=== PATIENT | female | born 1950 | race Caucasian/White ===

== ENCOUNTER 2020-11-27 01:48 | Outpatient (CLI) | payer MEDICARE, BC, SELFPAY ==
--- NOTE | 2020-11-27 08:00 | DI.RAD_ITS ---
EXAM: XR THUMB RT CLINICAL HISTORY: Pain, clicking right thumb,M79.646. TECHNIQUE: 2D digital imaging was performed. COMPARISON: No exams were available for comparison FINDINGS: There is no evidence of fracture lines. No dislocation. On the lateral view there is a tiny submill imeter calcific density just volar to the base of the distal phalanx, possibly significant. There is no radiographic evidence of osteomyelitis. Sign rib IMPRESSION: DATA REPOSITORY: RADIATION DOSE DELIVERED:
== END 2020-11-27 02:08 ==
PROVIDERS: PCP Student in an Organized Health Care Education/Training Program; Visit Provider Student in an Organized Health Care Education/Training Program
DX: M79.644 Pain in right finger(s) (principal); M24.841 Other specific joint derangements of right hand, not elsewhere classified
CPT/HCPCS: 73140

== ENCOUNTER 2021-01-09 03:27 | Outpatient (CLI) | payer MEDICARE, BC, SELFPAY ==
[2021-01-09 08:20] LABS: HCT 38.6 % (36.0-46.0); HGB 12.8 g/dL (11.2-15.7); MCH 30.3 pg (27.0-33.0); MCHC 33.2 % (32.0-36.0); MCV 91.3 fL (80-95); MPV 9.8 fL (8.0-11.0); Platelet Count 224 10^3/uL (130-400); RBC 4.23 10^6/uL (3.93-5.22); RDW 12.5 % (11.7-14.6); RDW-SD 41.8 fL; WBC 6.41 10^3/uL (4.4-10.8)
[2021-01-09 09:05] LABS: Iron 102 ug/dL (50-170)
[2021-01-09 09:16] LABS: ALT 23 U/L (14-59); AST 21 U/L (15-37); Albumin 3.6 g/dL (3.4-5.0); Alkaline Phosphatase 78 U/L (46-116); Anion Gap 7.2 mmol/L (3-11); BUN 17 mg/dL (7-18); Bilirubin, Total 0.7 mg/dL (0.2-1.0); CO2 27.8 mmol/L (21.0-32.0); CREATININE 0.7 mg/dL (0.55-1.02); Calcium 8.9 mg/dL (8.5-10.1); Chloride 107 mmol/L (98-107); Glucose 86 mg/dL (74-106); Potassium 4.3 mmol/L (3.5-5.1); Sodium 142 mmol/L (136-145); TSH (W/Ref FT4) 1.54 uIU/mL (0.36-3.74); Total Protein 6.5 g/dL (6.4-8.2)
[2021-01-09 12:21] LABS: Calculated LDL 112 mg/dL (<100); Cholesterol 181 mg/dL (<200); Ferritin 151 ng/mL (8-252); HDL Cholesterol 55 mg/dL (40-60); Triglyceride 73 mg/dL (<150)
[2021-01-13 19:33] LABS: Vitamin D 25 Total 75.3 ng/mL (30-100)
== END 2021-01-09 03:28 | disposition home or self-care (01) ==
LOC: LBO 03:27
PROVIDERS: PCP Student in an Organized Health Care Education/Training Program; Visit Provider Student in an Organized Health Care Education/Training Program
DX: D64.9 Anemia, unspecified (principal); E78.2 Mixed hyperlipidemia; M81.0 Age-related osteoporosis without current pathological fracture; E46 Unspecified protein-calorie malnutrition
CPT/HCPCS: 36415; 80053; 80061; 82306; 85027; 82728; 83540; 84443

== ENCOUNTER 2021-04-28 00:49 | Outpatient (CLI) | payer MEDICARE, BC, SELFPAY ==
--- NOTE | 2021-04-28 08:30 | DI.RAD_ITS ---
Exam(s) XR LUMBAR SPINE COMPLETE EXAM: XR LUMBAR SPINE COMPLETE CLINICAL HISTORY: eval progressive degenerative disease, back pain, M54.9. TECHNIQUE: 2D digital imaging was performed. COMPARISON: No exams were available for comparison FINDINGS: There is no evidence of fracture or listhesis nor pars defects. There is multilevel disc space narro wing. Most prominent disc space narrowing is noted on the left side at L3-4 level and this is the ce nter of a mild degenerative scoliosis convex right. Disc space height on the right side at this leve l is normal. No osseous lesions. Sacroiliac joints appear unremarkable. Mild facet arthropathy. IMPRESSION: Degenerative disc disease. Degenerative scoliosis. DATA REPOSITORY: RADIATION DOSE DELIVERED:
== END 2021-04-28 01:09 ==
PROVIDERS: PCP Student in an Organized Health Care Education/Training Program; Visit Provider Student in an Organized Health Care Education/Training Program
DX: M54.9 Dorsalgia, unspecified (principal); M51.36 Other intervertebral disc degeneration, lumbar region; M41.86 Other forms of scoliosis, lumbar region
CPT/HCPCS: 72110

== ENCOUNTER 2021-06-03 04:03 | Outpatient (CLI) | payer MEDICARE, BC, SELFPAY ==
[2021-06-04 11:05] LABS: Lyme Ab w Rflx to Lyme Confirm Negative (Negative)
[2021-06-05 19:17] LABS: Anaplasma phagocytophilum Negative (Negative); B. miyamotoi PCR Negative (Negative); Babesia divergens/MO-1 Negative (Negative); Babesia duncani Negative (Negative); Babesia microti Negative (Negative); Ehrlichia chaffeensis Negative (Negative); Ehrlichia ewingii/canis Negative (Negative); Ehrlichia muris eauclairensis Negative (Negative)
== END 2021-06-03 04:04 | disposition home or self-care (01) ==
LOC: LBO 04:04
PROVIDERS: PCP Student in an Organized Health Care Education/Training Program; Visit Provider Student in an Organized Health Care Education/Training Program
DX: M25.59 Pain in other specified joint; W57.XXXA Bitten or stung by nonvenomous insect and other nonvenomous arthropods, initial encounter
CPT/HCPCS: 36415; 87798; 86618

== ENCOUNTER 2021-08-24 04:43 | Emergency (ER) | payer MEDICARE, BC, SELFPAY ==
[2021-08-24 04:50] VITALS: BP 123/78; PULSE 70; RESP 18; TEMP 36.7; O2SAT 97
--- NOTE | 2021-08-24 05:00 | DI.RAD_ITS ---
Exam(s) XR PORTABLE CHEST AP EXAM: XR PORTABLE CHEST AP CLINICAL HISTORY: covid + Cough, SOB TECHNIQUE: 2D digital imaging was performed. COMPARISON: No exams were available for comparison FINDINGS: LUNGS: Clear. No pleural abnormality seen. HEART: Normal. MEDIASTINUM: Normal. BONES: Unremarkable. IMPRESSION: No acute pulmonary findings. DATA REPOSITORY: RADIATION DOSE DELIVERED:
--- NOTE | 2021-08-24 05:00 | RT.EKG_ITS ---
APPROVED REPORT Exam: Resting ECG Reason for Exam: chest pain Patient Location: E HR:64 bpm ECG Measurements Heart Rate 64 AXIS OR 152 P 63 QRSd 98 QRS 25 QT 433 T 38 QTc 448 Conclusion Sinus rhythm...normal P axis, V-rate 60- 99 Physician: no stemi
[2021-08-24] MEDS: Normal Saline 500 ML 30 ML IV (05:10)
--- NOTE | 2021-08-24 05:11 | W.ED.GENAD ---
Discharge Plan Disposition Patient Disposition: HOME Condition: Good Discharge Details Clinical Impression: COVID-19, Acute hypokalemia Primary Care Provider: Cheyenne Lucas ED Provider: Lorne Flores Home Meds and New Rx's Prescriptions: Continued resveratrol-quercetin 100-100 mg tablet See Rx Instructions PO .QD RF: 0 Adult Probiotic 3 billion cell capsule 3,000 mmu cells PO DAILY RF: 0 magnesium 250 mg tablet 250 mg PO DAILY RF: 0 omega-3 fatty acids 500 mg capsule 500 mg PO DAILY RF: 0 ascorbate calcium (vitamin C) 500 mg tablet 500 mg PO DAILY RF: 0 zinc acetate 25 mg (zinc) capsule 25 mg PO DAILY RF: 0 vitamin A 10,000 unit capsule 10,000 unit PO DAILY RF: 0 vitamin B complex Capsule 1 cap PO DAILY RF: 0 cholecalciferol (vitamin D3) 125 mcg (5,000 unit) capsule 125 mcg PO DAILY RF: 0 No Action melatonin 10 mg Tablet 10 mg PO HS RF: 0 Discharge Instructions Instructions: COVID-19 (Coronavirus Disease 2019) (ED) Additional Instructions: At this time your laboratory work-up is reassuring, and your chest x-ray shows no evidence of Covid pneumonia. You have received the antibody infusion, and if you will be feeling better, I suspect it will be within the next 36 hours. Please drink plenty of fluids, get plenty of rest, continue with your supplements. Additionally your potassium is slightly low, as is your calcium. It would be reasonable to supplement these at home with diet and supplementation. Please continue to use your pulse oximeter at home, monitor for any signs of hypoxemia which will be represented by a O2 saturation level less than 91% on multiple fingers for greater than a minute. If you notice any worsening of your symptoms, or any new symptoms such as vomiting, diarrhea, fever, chills, shortness of breath, chest pain, numbness, weakness, or fainting , please return immediately to the emergency department for reevaluation. Please follow up with your primary care provider as soon as possible for reassessment and reevaluation. As always, it was a pleasure participating in your medical care today. Referrals: Cheyenne Lucas DO [Primary Care Provider] - Medical Decision Making This is this is a 70-year-old female with no significant past medical history who presents today seeking monoclonal antibody infusion. Patient is Covid positive. She developed symptoms on Wednesday. She admits to mild sore throat, cough, malaise fatigue. She denies any chest pain. She denies any fevers but does admit to chills. She is currently taking aspirin, ivermectin, zinc, vitamin D, vitamin C, melatonin, and B complex vitamin. She denies any other complaints at this time. She has not received her Covid vaccine. No other modifying factors. Physical exam is unremarkable, vital signs stable. We will give the monoclonal antibody infusion, get basic labs to screen chest x-ray, monitor closely and reassess. 6:05 AM Laboratory work-up has returned relatively unremarkable, potassium is slightly low at 3.1. Will give 40 mEq here and recommend on potassium as well. Chest x-ray negative, troponin and EKG stable. STEMI. CBC normal. Patient tolerated the infusion well. Patient will be discharged home. Discussed red flags for which to return. Patient shows no signs of acute respiratory distress at this time requiring admission. Symptoms inconsistent with PE or ACS. I have extensively reviewed the treatment plan and discharge instructions with the patient. I have addressed all patient concerns at this time. The patient was made aware of what symptoms to monitor for that would warrant a return to the emergency department. Discussed the plan with the patient, they demonstrate verbal understanding and agreement with our assessment and plan at this time. The documentation in this chart was dictated using [employer] dictation software. Please excuse any dictation errors. FINDINGS: Lungs: Unremarkable. No consolidation. Pleural spaces: Unremarkable. No pleural effusion. No pneumothorax. Heart/Mediastinum: Unremarkable. No cardiomegaly. Bones/joints: Unremarkable. IMPRESSION: No acute findings. Thank you for allowing us to participate in the care of your patient. Dictated and Authenticated by: Efren Albarado DO 08/24/2021 5:53 AM Eastern Time ([place] & [place] HPI General Date/Time Provider Initiated Documentation: 08/24/21 04:49. HPI Narrative: This is this is a 70-year-old female with no significant past medical history who presents today seeking monoclonal antibody infusion. Patient is Covid positive. She developed symptoms on Wednesday. She admits to mild sore throat, cough, malaise fatigue. She denies any chest pain. She denies any fevers but does admit to chills. She is currently taking aspirin, ivermectin, zinc, vitamin D, vitamin C, melatonin, and B complex vitamin. She denies any other complaints at this time. She has not received her Covid vaccine. No other modifying factors. Related Data Home Medications Medication Instructions Recorded Confirmed ascorbate calcium (vitamin C) 500 500 mg PO DAILY 10/31/20 08/24/21 mg tablet cholecalciferol (vitamin D3) 125 125 mcg PO DAILY 10/31/20 08/24/21 mcg (5,000 unit) capsule vitamin A 10,000 unit capsule 10,000 unit PO DAILY 10/31/20 08/24/21 vitamin B complex 1 cap PO DAILY 10/31/20 08/24/21 zinc acetate 25 mg (zinc) capsule 25 mg PO DAILY 10/31/20 08/24/21 lactobacillus combination no.8 3 3,000 mmu cells PO DAILY 11/22/20 08/24/21 billion cell capsule magnesium 250 mg tablet 250 mg PO DAILY 11/22/20 08/24/21 resveratrol-quercetin 100 mg-100 See Rx Instructions PO .QD tab 11/22/20 07/01/21 mg tablet omega-3 fatty acids 500 mg capsule 500 mg PO DAILY 02/27/21 08/24/21 melatonin 10 mg PO HS 08/24/21 08/24/21 Allergies Allergy/AdvReac Type Severity Reaction Status Date / Time erythromycin base AdvReac Headache Verified 08/24/21 05:28 General Stated Complaint: GenMedical CHAS: 2 Review of Systems All systems reviewed & are unremarkable except as noted in HPI and below PFSH All Active Problems (Updated 08/24/21 @ 06:06 by Lorne Flores DO) COVID-19 (Acute) Acute hypokalemia (Acute) Sensorineural hearing loss (SNHL) of both ears (Acute) Caregiver stress (Acute) Cares for w/ frontal lobe dementia .. worries about her own memory/stress.. Hearing loss (Acute) Back pain (Acute) Malnutrition (Acute) Thumb pain (Acute) Anemia (Chronic) Achilles tendinitis, left leg (Acute) Continues, Pod trial'd medrol w/ only limited relief. Maybe long Hx, 2' repetitive motion on thin ladder. 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, nalsa labial crease Acne erythematosa (Acute) Mixed hyperlipidemia (Acute) Medical History History of mammogram Surgical History History of colonoscopy History of surgical removal of skin lesion History of tonsillectomy as a baby Family History Father Alcohol abuse Cancer liver, esophagus Heart disease Hypertension Mother Depression Restless leg syndrome Social History Smoking/Tobacco Use Status: Never Smoking risk assessment performed?: Yes Alcohol Intake: never Drug use: Never Substance use type: does not use Household members: spouse Do you need help understanding health information?: Never Pets and animals: No Sexually active: No Do you think of yourself as: straight/heterosexual Current gender identity: female Do you feel safe at home: Yes Do you feel safe in your relationship?: Yes Exam Narrative Exam Narrative: 1.Const: Well-nourished, Well-developed, appearing stated age 2.Eyes: PERRL, no conjunctival injection, and symmetrical lids. 3.ENT: Atraumatic external nose and ears. Moist MM. Neck: Symmetric, trachea midline, No thyromegaly. 4.CVS: +S1/S2, No murmurs or gallops. Peripheral pulses 2+ and equal in all extremities. Brisk capillary refill in all extremities. 5.RESP: Unlabored respiratory effort. Clear to auscultation bilaterally. No wheezes rales or rhonchi 6.GI: Soft, Nontender/Nondistended, No hepatosplenomegaly. No guarding or rebound. 7.MSK: Normocephalic/Atraumatic, Extremities w/o deformity or ttp No cyanosis or clubbing, Normal movement of all extremities, no calf tenderness 8.Skin: Warm, Dry. No rashes or lesions. 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 Sensation grossly intact, no focal neurologic deficits. 10.Psych: (AAO) x3. Appropriate mood and affect Course Vital Signs Vital signs: Vital Signs Temperature 36.7 C 08/24/21 04:50 Pulse 70 08/24/21 04:50 Respiratory Rate 18 08/24/21 04:50 Blood Pressure 123/78 08/24/21 04:50 Pulse Oximetry 97 08/24/21 04:50 Temperature 36.7 C 08/24/21 04:50 Temperature Source Skin 08/24/21 04:50 Pulse 70 08/24/21 04:50 Respiratory Rate 18 08/24/21 04:50 Blood Pressure 123/78 08/24/21 04:50 Blood Pressure Position Sitting 08/24/21 04:50 Pulse Oximetry 97 08/24/21 04:50 Oxygen Delivery Method Room Air 08/24/21 04:50 Oxygen Flow Rate 0 08/24/21 04:50 Pain Level 0 08/24/21 04:50
[2021-08-24 05:20] LABS: Abs Immature Grans 0.01 10^3/uL (0.0-0.06); Absolute Basophil Count 0.02 10^3/uL (0.0-0.2); Absolute Eosinophil Count 0.06 10^3/uL (0.0-0.7); Absolute Lymphocyte Count 1.75 10^3/uL (1.2-3.4); Absolute Monocyte Count 0.38 10^3/uL (0.1-0.8); Absolute Neutrophil Count 2.86 10^3/uL (1.2-6.7); Basophils % 0.4; Eosinophils % 1.2; HCT 39.3 % (36.0-46.0); HGB 13.1 g/dL (11.2-15.7); Immature Grans % 0.2; Lymphocytes % 34.4; MCH 29.8 pg (27.0-33.0); MCHC 33.3 % (32.0-36.0); MCV 89.3 fL (80-95); MPV 9.9 fL (8.0-11.0); Monocytes % 7.5; Neutrophils % 56.3; Nucleated RBC 0 %; Platelet Count 166 10^3/uL (130-400); RDW 12.4 % (11.7-14.6); RDW-SD 40.7 fL; WBC 5.08 10^3/uL (4.4-10.8)
[2021-08-24 05:33] LABS: ALT 17 U/L (14-59); AST 18 U/L (15-37); Albumin 3.2 g/dL (3.4-5.0); Alkaline Phosphatase 84 U/L (46-116); Anion Gap 10.2 mmol/L (3-11); BUN 10 mg/dL (7-18); Bilirubin, Total 0.6 mg/dL (0.2-1.0); CO2 24.8 mmol/L (21.0-32.0); CREATININE 0.7 mg/dL (0.55-1.02); Calcium 8.3 mg/dL (8.5-10.1); Chloride 105 mmol/L (98-107); Glucose 93 mg/dL (74-106); Potassium 3.1 mmol/L (3.5-5.1); Sodium 140 mmol/L (136-145); Total Protein 6.6 g/dL (6.4-8.2)
[2021-08-24 05:38] LABS: Troponin I < 50 ng/L (<or=60)
--- NOTE | 2021-08-24 05:54 | DI.VRAD_ITS ---
PROCEDURE INFORMATION: Exam: XR Chest Exam date and time: 08/24/2021 5:11 AM Age: 70 years old Clinical indication: Cough and shortness of breath; Patient HX: Cough, SOB, covid+ TECHNIQUE: Imaging protocol: XR of the chest. Views: 1 view. COMPARISON: No relevant prior studies available. FINDINGS: Lungs: Unremarkable. No consolidation. Pleural spaces: Unremarkable. No pleural effusion. No pneumothorax. Heart/Mediastinum: Unremarkable. No cardiomegaly. Bones/joints: Unremarkable. IMPRESSION: No acute findings. Dictated and Authenticated by: Efren Albarado MD. Ordering:RUTHIE Pradhan MD
[2021-08-24] MEDS: Potassium Chloride 20 MEQ TABCR 40 MEQ PO (06:34)
== END 2021-08-24 18:15 | disposition home or self-care (01) ==
PROVIDERS: Emergency Provider Student in an Organized Health Care Education/Training Program; PCP Student in an Organized Health Care Education/Training Program
DX: U07.1 COVID-19 (principal); E87.6 Hypokalemia
CPT/HCPCS: 36415; 80053; 93005; 96360; 96365; 99284; 71045; 84484; 85025; 93010

== ENCOUNTER 2022-07-14 03:18 | Outpatient (CLI) | payer MEDICARE, BC, SELFPAY ==
[2022-07-14 09:52] LABS: ALT 20 U/L (14-59); AST 22 U/L (15-37); Albumin 3.5 g/dL (3.4-5.0); Alkaline Phosphatase 97 U/L (46-116); Anion Gap 8.9 mmol/L (3-11); BUN 13 mg/dL (7-18); Bilirubin, Total 0.8 mg/dL (0.2-1.0); CO2 28.1 mmol/L (21.0-32.0); CREATININE 0.6 mg/dL (0.55-1.02); Chloride 106 mmol/L (98-107); Estimated GFR 94.72 (mL/min/1.73m2); Glucose 87 mg/dL (74-106); Magnesium 1.9 mg/dL (1.8-2.4); Potassium 4.1 mmol/L (3.5-5.1); Sodium 143 mmol/L (136-145)
== END 2022-07-14 03:19 | disposition home or self-care (01) ==
LOC: LBO 03:18
PROVIDERS: PCP Student in an Organized Health Care Education/Training Program; Visit Provider Student in an Organized Health Care Education/Training Program
DX: E87.6 Hypokalemia (principal); R25.2 Cramp and spasm; E46 Unspecified protein-calorie malnutrition; Z91.89 Other specified personal risk factors, not elsewhere classified
CPT/HCPCS: 36415; 80053; 83735

== ENCOUNTER 2023-03-16 03:40 | Outpatient (CLI) | payer MEDICARE, BC, SELFPAY ==
[2023-03-16 16:41] LABS: Folate > 20.0 ng/mL (8.6-20.0)
[2023-03-16 17:12] LABS: Vitamin D 25 Total 68.8 ng/mL (30-100)
[2023-03-16 17:17] LABS: Anion Gap 7.1 mmol/L (3-11); BUN 17 mg/dL (7-18); CO2 28.9 mmol/L (21.0-32.0); CREATININE 0.9 mg/dL (0.55-1.02); Calcium 8.8 mg/dL (8.5-10.1); Chloride 107 mmol/L (98-107); Estimated GFR 67.08 (mL/min/1.73m2); Glucose 93 mg/dL (74-106); Potassium 3.7 mmol/L (3.5-5.1); Sodium 143 mmol/L (136-145); Vitamin B12 410 pg/mL (193-986)
[2023-03-22 12:45] LABS: Thiamine (Vitamin B1), WB 117 nmol/L (70-180)
== END 2023-03-16 03:41 | disposition home or self-care (01) ==
LOC: LBO 03:40
PROVIDERS: PCP Student in an Organized Health Care Education/Training Program; Referring Provider Student in an Organized Health Care Education/Training Program; Visit Provider Student in an Organized Health Care Education/Training Program
DX: H91.90 Unspecified hearing loss, unspecified ear (principal); R25.1 Tremor, unspecified; E46 Unspecified protein-calorie malnutrition; R25.2 Cramp and spasm; R79.89 Other specified abnormal findings of blood chemistry; M81.0 Age-related osteoporosis without current pathological fracture
CPT/HCPCS: 36415; 80048; 82306; 82607; 82746; 84425